=== PATIENT | male | born 1970 | race Caucasian/White ===

== ENCOUNTER 2018-10-28 20:39 | Emergency (ER) | payer OTHER ==
[~2018-10-28] VITALS: Ht 182.9 cm; Wt 104.3 kg
== END 2018-10-28 22:17 | disposition home or self-care (01) ==
LOC: ER 20:39
DX: S60.221A Contusion of right hand, initial encounter (principal); S60.410A Abrasion of right index finger, initial encounter; S60.311A Abrasion of right thumb, initial encounter; S60.412A Abrasion of right middle finger, initial encounter; W22.8XXA Striking against or struck by other objects, initial encounter; Z88.0 Allergy status to penicillin; Z88.2 Allergy status to sulfonamides; Z88.1 Allergy status to other antibiotic agents; Z91.030 Bee allergy status
CPT/HCPCS: 29125; 73130; 99283-25; L3917